=== PATIENT | female | born 1940 ===

== ENCOUNTER 2017-10-25 10:40 | Inpatient (IN) | payer MEDICARE, MEDICAID ==
[~2017-10-25] VITALS: Ht 160 cm; Wt 58.5 kg
--- NOTE | 2017-10-25 17:05 | NUR ---
Received this direct admission from [facility], 77 yo female, with the chief complaint of falling, diagnosis of left hip fracture s/p left hip IM [place] [facility]IF by Dr. Olsen. Transferred to bed comfortably. Routine admission care rendered. Awake, alert, oriented x 4, Northern Irish speaking able to speak simple [place]i. Left hip and lateral knee incision with mateo intact. Noted left hip skin tear. Photos taken.
[2017-10-25 17:15] VITALS: BP 134/61
[2017-10-25] MEDS ORDERED: Z GUARD REMEDY PASTE 57 GM TUBE TOP PRN (18:45)
--- NOTE | 2017-10-25 19:03 | NUR ---
Dinner served. Endorsed for further care
[2017-10-25] MEDS ORDERED: MAGN64TA13 PO (19:21)
[2017-10-25] MEDS ORDERED: MULT1TAB73 PO (19:21)
[2017-10-25] MEDS ORDERED: CYAN10009 PO (19:21)
[2017-10-25] MEDS ORDERED: OXYCODONE/APAP 5-325 MG TABLET PO PRN (19:30)
--- NOTE | 2017-10-25 19:30 | NUR ---
Received patient from day shift nurse. Patient in no acute distress at start of shift. A/Ox4, Citizen Of [place]an speaking, able to make needs known. Pertinent assessment completed. Patient denies pain & sob. Left hip incision is clean & dry with no s/s of infection or inflammation. Ceres are intact. Bed placed in low position & locked. Call light within reach. Will continue to monitor through shift.
[2017-10-25] MEDS: DOCUSATE SODIUM 100 MG CAPSULE PO SCH (20:47)
[2017-10-25 21:10] VITALS: BP 119/56
[2017-10-26 07:25] VITALS: BP 101/56
[2017-10-26] MEDS: MULTIVITAMINS,THERAPEUTIC TABLET PO SCH (09:28)
[2017-10-26] MEDS: CYANOCOBALAMIN 1,000 MCG TABLET PO SCH (09:28)
[2017-10-26] MEDS: MAGNESIUM CHLORIDE 64 MG TABLET.SA PO SCH (09:28)
[2017-10-26] MEDS: OXYCODONE/APAP 5-325 MG TABLET PO PRN (09:43)
[2017-10-26] MEDS: MAGNESIUM HYDROXIDE 30 ML LIQUID UDC PO PRN (15:39)
--- NOTE | 2017-10-26 19:30 | NUR ---
Patient lying comfortably in bed at start of shift. Family at the bedside. Pertinent assessment completed. Denies left hip pain at the moment. Left hip incision is clean, dry, intact. No s/s of infection noted. Dressing is intact. Patient had 1 large BM at start of shift. Bed in low position & locked. Call light within reach. Will continue to monitor through shift.
[2017-10-26] MEDS: BISACODYL 5 MG TABLET.DR PO SCH (21:00)
[2017-10-26] MEDS: DOCUSATE SODIUM 100 MG CAPSULE PO SCH (21:00)
--- NOTE | 2017-10-26 21:00 | NUR ---
Patient refused Colace & Dulcolax meds because she just had a large BM at start of shift. Explained risks & benefits of medications. Will continue to monitor patient
[2017-10-26 22:16] VITALS: BP 116/60
[2017-10-27] MEDS: OXYCODONE/APAP 5-325 MG TABLET PO PRN ×2 (06:07→23:07)
[2017-10-27 07:42] VITALS: BP 103/57
[2017-10-27] MEDS: MAGNESIUM CHLORIDE 64 MG TABLET.SA PO SCH (11:05)
[2017-10-27] MEDS: CYANOCOBALAMIN 1,000 MCG TABLET PO SCH (11:05)
[2017-10-27] MEDS: MULTIVITAMINS,THERAPEUTIC TABLET PO SCH (11:05)
[2017-10-27] MEDS ORDERED: IRON18TA PO (13:31)
--- NOTE | 2017-10-27 19:30 | NUR ---
Received patient from day shift nurse. Patient currently lying in bed at start of shift with no acute distress noted. Patient denies pain & SOB at the moment. Pertinent assessment completed. A/Ox4 Ukrainian/Liberian speaking & able to make needs known. Patient had a BM this AM. Refusing 2100 meds Dulcolax & Colace. Explained risks & benefits. patient continues to refuse meds and states that prune juice works well for her. Call light within reach of pt. Will continue to monitor through shift.
[2017-10-27] MEDS: DOCUSATE SODIUM 100 MG CAPSULE PO SCH (20:18)
[2017-10-27] MEDS: BISACODYL 5 MG TABLET.DR PO SCH (20:18)
[2017-10-27 20:48] VITALS: BP 120/71
[2017-10-28 08:00] VITALS: BP 118/64
[2017-10-28] MEDS: MAGNESIUM CHLORIDE 64 MG TABLET.SA PO SCH (09:00)
[2017-10-28] MEDS: MULTIVITAMINS,THERAPEUTIC TABLET PO SCH (09:00)
[2017-10-28] MEDS: CYANOCOBALAMIN 1,000 MCG TABLET PO SCH (09:00)
[2017-10-28 15:59] VITALS: BP 108/59
--- NOTE | 2017-10-28 18:30 | NUR ---
Patient alert, in no distress. Dressing on left hip/thigh clean/dry/intact. Assisted patient with toileting needs. Patient c/o of pain upon movement but refuses pain medication. Discussed risks/benefits of taking/not taking pain medication, patient/daughter verbalized understanding.
[2017-10-28 19:46] VITALS: BP 108/59
[2017-10-28] MEDS: DOCUSATE SODIUM 100 MG CAPSULE PO SCH (21:08)
[2017-10-28] MEDS: BISACODYL 5 MG TABLET.DR PO SCH (21:09)
--- NOTE | 2017-10-28 23:00 | NUR ---
Pt noted to have three opened blisters on the left hip around the surgical site. Changed dressing and used skin tape instead. Pictures taken and placed in chart. No s/s of infection noted. Daughter at bedside and aware of skin condition. Teachings provided regarding wound care. Will continue to monitor.
[2017-10-29 06:40] VITALS: BP 96/55
[2017-10-29 08:00] VITALS: BP 98/54
[2017-10-29] MEDS: MULTIVITAMINS,THERAPEUTIC TABLET PO SCH (09:47)
[2017-10-29] MEDS: MAGNESIUM CHLORIDE 64 MG TABLET.SA PO SCH (09:48)
[2017-10-29] MEDS: CYANOCOBALAMIN 1,000 MCG TABLET PO SCH (09:48)
[2017-10-29] MEDS: OXYCODONE/APAP 5-325 MG TABLET PO PRN (13:32)
[2017-10-29 15:59] VITALS: BP 97/55
--- NOTE | 2017-10-29 18:57 | NUR ---
Pt. is alert and verbally responsive. Continue on pain management with good effect. not in distress.change dressing done with small amount serous yellow brownish drainage, 1x BM noted. Call qureshi within reach. will continue monitor
--- NOTE | 2017-10-29 20:00 | NUR ---
Pt resting in bed. Family at bedside. No acute distress noted. No c/o pain or discomfort. Wound site healing well. No s/s of infection noted. Safety measures maintained. Call light and personal belongings within reach. Will continue to monitor.
[2017-10-29 20:30] VITALS: BP_SYST 105; BP_SYST 112; BP_DIAS 59; BP_DIAS 61
[2017-10-29] MEDS: DOCUSATE SODIUM 100 MG CAPSULE PO SCH (20:30)
[2017-10-29] MEDS: BISACODYL 5 MG TABLET.DR PO SCH (20:30)
[2017-10-30] MEDS: MAGNESIUM HYDROXIDE 30 ML LIQUID UDC PO PRN (00:11)
[2017-10-30 07:16] VITALS: BP 102/53
[2017-10-30 08:00] VITALS: BP 107/54
[2017-10-30] MEDS: MAGNESIUM CHLORIDE 64 MG TABLET.SA PO SCH (09:40)
[2017-10-30] MEDS: MULTIVITAMINS,THERAPEUTIC TABLET PO SCH (09:40)
[2017-10-30] MEDS: CYANOCOBALAMIN 1,000 MCG TABLET PO SCH (09:40)
[2017-10-30 16:09] VITALS: BP 118/60
--- NOTE | 2017-10-30 19:30 | NUR ---
Patient lying in bed comfortably at start of shift. Family at the bedside. Patient denies pain. Pertinent assessment completed. A/O x4, Korean/Divehi speaking & able to make all needs known. Left hip incision is clean & dry with no s/s of infection or inflammation. Dressing intact. Vital signs within range. Call light within reach. Will continue to monitor through shift.
[2017-10-30 20:16] VITALS: BP 121/64
[2017-10-30] MEDS: DOCUSATE SODIUM 100 MG CAPSULE PO SCH (20:31)
[2017-10-30] MEDS: BISACODYL 5 MG TABLET.DR PO SCH (20:31)
--- NOTE | 2017-10-30 20:32 | NUR ---
Patient refusing 2100 meds Colace & Dulcolax. Patient stating that she has no problems using the bathroom. Educated patient & explained risks & benefits. Will continue to monitor through shift.
[2017-10-31] MEDS: OXYCODONE/APAP 5-325 MG TABLET PO PRN ×2 (01:24→09:07)
[2017-10-31 04:00] VITALS: BP 106/56
[2017-10-31 08:19] VITALS: BP 105/59
[2017-10-31] MEDS: CYANOCOBALAMIN 1,000 MCG TABLET PO SCH (08:29)
[2017-10-31] MEDS: MULTIVITAMINS,THERAPEUTIC TABLET PO SCH (08:29)
[2017-10-31] MEDS: MAGNESIUM CHLORIDE 64 MG TABLET.SA PO SCH (08:29)
--- NOTE | 2017-10-31 09:30 | NUR ---
Pt.family at bedside,updated with pt.condition and plan of care.
[2017-10-31] MEDS ORDERED: ENOXAPARIN SODIUM 40 MG/0.4 ML DISP.SYRIN SQ SCH (11:45)
--- NOTE | 2017-10-31 14:15 | NUR ---
Pt.watching TV,denies any pain
[2017-10-31 15:04] LABS: BASOPHILS # (AUTO) 0.1 K/uL (0.0-8.0); BASOPHILS % (AUTO) 0.9 % (0.0-2.0); EOSINOPHILS # (AUTO) 0.3 K/uL (0.0-0.7); EOSINOPHILS % (AUTO) 3.2 % (0.0-7.0); HEMATOCRIT 30.8 % (31.2-41.9); HEMOGLOBIN 9.8 g/dL (10.9-14.3); LYMPHOCYTES # (AUTO) 1.3 K/uL (20.0-40.0); MEAN CORPUSCULAR HEMOGLOBIN 26.3 uug (24.7-32.8); MEAN CORPUSCULAR HGB CONC 32 g/dL (32.3-35.6); MEAN CORPUSCULAR VOLUME 82.6 fL (75.5-95.3); MONOCYTES # (AUTO) 0.9 K/uL (2.0-10.0); MONOCYTES % (AUTO) 9.9 % (0.0-11.0); NEUTROPHILS # (AUTO) 6.6 K/uL (1.8-8.9); PLATELET COUNT (AUTO) 470 K/uL (179-408); RED BLOOD CELL COUNT(AUTO) 3.73 MIL/uL (3.63-4.92); WHITE BLOOD COUNT (AUTO) 9.1 K/uL (3.8-11.8)
[2017-10-31 15:10] LABS: ALANINE AMINOTRANSFERASE 14 U/L (14-59); ALKALINE PHOSPHATASE 68 U/L (50-136); ASPARTATE AMINOTRANSFERASE 16 U/L (15-37); BILIRUBIN,TOTAL 0.5 mg/dL (0.2-1.0); CARBON DIOXIDE 30 mmol/L (21-32); CHLORIDE 102 mmol/L (98-107); CREATININE 0.9 mg/dL (0.6-1.3); GLUCOSE 105 mg/dL (74-106); MAGNESIUM 2.1 mg/dL (1.8-2.4); PHOSPHOROUS 4.3 mg/dL (2.5-4.9); POTASSIUM 4.6 mmol/L (3.5-5.1); TOTAL PROTEIN, SERUM 6.6 g/dL (6.4-8.2); UREA NITROGEN, BLOOD 15 mg/dL (7-18)
[2017-10-31 16:32] VITALS: BP 101/55
[2017-10-31] MEDS: MAGNESIUM HYDROXIDE 30 ML LIQUID UDC PO PRN (17:14)
--- NOTE | 2017-10-31 17:55 | NUR ---
Pt. eating dinner with family,no s/s of distress,denies any pain.
--- NOTE | 2017-10-31 19:30 | NUR ---
Received report from day shift RN. Patient stable at start of shift with no acute distress noted. Patient denies pain at the moment. Pertinent assessment completed. Vital signs WNL. Left hip incision is clean & dry with no s/s of infection or inflammation. Dressing is intact. Bed in low position x2 side rails up. Call light within reach. Will continue to monitor through shift.
[2017-10-31 19:47] VITALS: BP 107/59
[2017-10-31] MEDS: BISACODYL 5 MG TABLET.DR PO SCH (20:18)
[2017-10-31] MEDS: DOCUSATE SODIUM 100 MG CAPSULE PO SCH (20:18)
[2017-10-31] MEDS: ENOXAPARIN SODIUM 40 MG/0.4 ML DISP.SYRIN SQ SCH (20:20)
[2017-11-01 05:17] VITALS: BP 109/65
[2017-11-01 07:05] VITALS: BP 95/54
[2017-11-01] MEDS: MAGNESIUM CHLORIDE 64 MG TABLET.SA PO SCH ×2 (08:45→08:46)
[2017-11-01] MEDS: MULTIVITAMINS,THERAPEUTIC TABLET PO SCH (08:45)
[2017-11-01] MEDS: CYANOCOBALAMIN 1,000 MCG TABLET PO SCH (08:45)
[2017-11-01] MEDS: OXYCODONE/APAP 5-325 MG TABLET PO PRN ×2 (09:42→14:32)
[2017-11-01 15:00] VITALS: BP 106/57
--- NOTE | 2017-11-01 18:24 | NUR ---
Patient resting in bed, in no distress. Pain management as ordered. Dressing on left hip and left lateral knee clean/dry/intact. Incision with mateo on left hip and left lateral knee intact, no bleeding/discharge/redness noted. VS stable, pt is afebrile. Assisted with toileting needs. Safety measures in place. Daughter at bedside
--- NOTE | 2017-11-01 19:11 | NUR ---
RECEIVED REPORT FROM DAY SHIFT NURSE, RECEIVED Pt IN BED WITH DAUGHTER AT BEDSIDE, AWAKE, A/O X 4, DENIES PAIN OR DISCOMFORT AT THIS TIME. SURGICAL SITE INTACT, CLEAN, DRY WITH NO BLEEDING, REDNESS OR SIGNS OF INFECTION NOTED. IN STABLE CONDITION, REQUIRES ASSISTANCE TO USE THE BATHROOM. EMPHASIZED SAFETY, BED AT LOWEST POSITION WITH WHEELS LOCKED AND SIDE RAILS UP X 2.
--- NOTE | 2017-11-01 19:20 | NUR ---
Pt AND DAUGHTER REQUESTED TO HOLD COLACE AND DULCOLAX MEDS TONIGHT. COMPLAINED OF GOING TO BATHROOM TOO OFTEN AND NOT ALLOWING THEM TO SLEEP. WILL HOLD MED PER Pt AND FAMILY REQUEST.
[2017-11-01 20:28] VITALS: BP 119/55
[2017-11-01] MEDS: BISACODYL 5 MG TABLET.DR PO SCH (21:00)
[2017-11-01] MEDS: DOCUSATE SODIUM 100 MG CAPSULE PO SCH (21:00)
[2017-11-01] MEDS ORDERED: ENOXAPARIN SODIUM 40 MG/0.4 ML DISP.SYRIN SQ ONE (22:33)
[2017-11-01] MEDS: ENOXAPARIN SODIUM 40 MG/0.4 ML DISP.SYRIN SQ SCH (22:39)
[2017-11-02 05:20] VITALS: BP 102/54
--- NOTE | 2017-11-02 06:56 | NUR ---
Pt SLEPT INTERMITTENTLY THROUGHOUT THE NIGHT, CALLED FOR ASSISTANCE 3X TO URINATE. DENIES PAIN OR DISCOMFORT AT THIS TIME. CONTINUES TO BE COMPLIANT WITH MEDS AND CARE STAFF. NO AGGRESSIVE BX NOTED.
[2017-11-02 08:33] VITALS: BP 94/52
[2017-11-02] MEDS: OXYCODONE/APAP 5-325 MG TABLET PO PRN (09:06)
[2017-11-02] MEDS: MAGNESIUM CHLORIDE 64 MG TABLET.SA PO SCH (09:06)
[2017-11-02] MEDS: MULTIVITAMINS,THERAPEUTIC TABLET PO SCH (09:08)
[2017-11-02] MEDS: CYANOCOBALAMIN 1,000 MCG TABLET PO SCH (09:09)
[2017-11-02] MEDS ORDERED: IRON 25 MG PO SCH (10:45)
[2017-11-02 16:45] VITALS: BP 102/61
[2017-11-02] MEDS: [UNRECOGNIZED DRUG - OTHER] PO SCH (18:24)
--- NOTE | 2017-11-02 19:30 | NUR ---
Received patient in bed. Alert and verbally responsive. Able to make needs known. Denies any pain and discomfort. No acute distress. No SOB. Left hip dressing is clean and intact. Kept clean and dry. All needs attended to promptly. Call light within reach. Will continue to monitor.
[2017-11-02 20:14] VITALS: BP 102/55
[2017-11-02] MEDS: DOCUSATE SODIUM 100 MG CAPSULE PO SCH (20:31)
[2017-11-02] MEDS: BISACODYL 5 MG TABLET.DR PO SCH (20:31)
[2017-11-02] MEDS: ENOXAPARIN SODIUM 40 MG/0.4 ML DISP.SYRIN SQ SCH (20:37)
[2017-11-03 05:30] VITALS: BP 105/52
--- NOTE | 2017-11-03 06:29 | NUR ---
Patient slept comfortably throughout the night. No c/o pain and discomfort. No acute distress. No SOB. Assisted to the bathroom and with bedpan as needed. Pericare provided. Kept clean and dry. All needs attended to promptly. Call light within reach. Will continue to monitor.
[2017-11-03 08:00] VITALS: BP 114/61
[2017-11-03] MEDS: [UNRECOGNIZED DRUG - OTHER] PO SCH (08:22)
[2017-11-03] MEDS: MULTIVITAMINS,THERAPEUTIC TABLET PO SCH (08:23)
[2017-11-03] MEDS: CYANOCOBALAMIN 1,000 MCG TABLET PO SCH (08:23)
[2017-11-03] MEDS: MAGNESIUM CHLORIDE 64 MG TABLET.SA PO SCH (08:23)
[2017-11-03] MEDS: OXYCODONE/APAP 5-325 MG TABLET PO PRN (13:38)
[2017-11-03 16:13] VITALS: BP 92/61
--- NOTE | 2017-11-03 19:55 | NUR ---
Pt resting bed. AAO x4, Tajik speaking, able to make needs known. Daughter at bedside. No c/o pain or discomfort. Safety measures maintained. Call light and personal belongings within reach. Will continue to monitor.
[2017-11-03] MEDS: ENOXAPARIN SODIUM 40 MG/0.4 ML DISP.SYRIN SQ SCH (20:06)
[2017-11-03 20:07] VITALS: BP 114/56
[2017-11-03] MEDS: DOCUSATE SODIUM 100 MG CAPSULE PO SCH (20:07)
[2017-11-03] MEDS: BISACODYL 5 MG TABLET.DR PO SCH (20:07)
[2017-11-04 05:26] VITALS: BP 115/55
[2017-11-04 07:59] VITALS: BP 100/53
--- NOTE | 2017-11-04 08:14 | NUR ---
Patient noted sitting up in bed, assisted to restroom at this time, complains of pain in left hip, unable to scale due to language barrier, no sins of distress noted, call light in reach, bed locked and in lowest position
[2017-11-04] MEDS: MAGNESIUM CHLORIDE 64 MG TABLET.SA PO SCH (08:30)
[2017-11-04] MEDS: CYANOCOBALAMIN 1,000 MCG TABLET PO SCH (08:30)
[2017-11-04] MEDS: MULTIVITAMINS,THERAPEUTIC TABLET PO SCH (08:30)
[2017-11-04] MEDS: OXYCODONE/APAP 5-325 MG TABLET PO PRN (08:32)
[2017-11-04] MEDS: [UNRECOGNIZED DRUG - OTHER] PO SCH (09:02)
--- NOTE | 2017-11-04 13:28 | NUR ---
INTERDISCIPLINARY TEAM CONFERENCE
[2017-11-04] MEDS ORDERED: BISACODYL 5 MG TABLET.DR PO PRN (15:00)
[2017-11-04 16:50] VITALS: BP 100/72
--- NOTE | 2017-11-04 19:55 | NUR ---
Pt resting comfortably in bed. AAO X4, Rwandan speaking, and able to make needs known. Daughter at bedside. No c/o pain or discomfort. Safety measures maintained. Call light and personal belongings within reach. Will continue to monitor.
[2017-11-04 20:03] VITALS: BP 121/71
[2017-11-04] MEDS: DOCUSATE SODIUM 100 MG CAPSULE PO SCH (21:08)
[2017-11-04] MEDS: ENOXAPARIN SODIUM 40 MG/0.4 ML DISP.SYRIN SQ SCH (21:09)
[2017-11-05 05:09] VITALS: BP 118/68
[2017-11-05] MEDS: MAGNESIUM CHLORIDE 64 MG TABLET.SA PO SCH (09:35)
[2017-11-05] MEDS: MULTIVITAMINS,THERAPEUTIC TABLET PO SCH (09:35)
[2017-11-05] MEDS: CYANOCOBALAMIN 1,000 MCG TABLET PO SCH (09:35)
[2017-11-05] MEDS: [UNRECOGNIZED DRUG - OTHER] PO SCH (09:36)
[2017-11-05] MEDS: OXYCODONE/APAP 5-325 MG TABLET PO PRN (14:57)
[2017-11-05 20:00] VITALS: BP 107/56
[2017-11-05] MEDS: DOCUSATE SODIUM 100 MG CAPSULE PO SCH (21:10)
[2017-11-05] MEDS: ENOXAPARIN SODIUM 40 MG/0.4 ML DISP.SYRIN SQ SCH (21:16)
[2017-11-06 05:00] VITALS: BP 117/63
[2017-11-06 08:00] VITALS: BP 102/57
[2017-11-06] MEDS: CYANOCOBALAMIN 1,000 MCG TABLET PO SCH (10:01)
[2017-11-06] MEDS: MULTIVITAMINS,THERAPEUTIC TABLET PO SCH (10:01)
[2017-11-06] MEDS: MAGNESIUM CHLORIDE 64 MG TABLET.SA PO SCH (10:03)
[2017-11-06] MEDS: [UNRECOGNIZED DRUG - OTHER] PO SCH (10:03)
[2017-11-06] MEDS: OXYCODONE/APAP 5-325 MG TABLET PO PRN (10:07)
[2017-11-06 16:01] VITALS: BP 124/62
[2017-11-06 20:14] VITALS: BP 120/59
[2017-11-06] MEDS: DOCUSATE SODIUM 100 MG CAPSULE PO SCH (20:30)
[2017-11-06] MEDS: ENOXAPARIN SODIUM 40 MG/0.4 ML DISP.SYRIN SQ SCH (20:34)
--- NOTE | 2017-11-06 21:36 | NUR ---
received patient in fair condition. aaox3 needs attended. oob to the BR with walker under supervision. voiding well. patient was constipated. dulcolax tabs given as ordered. Small BM noted . will monitor patient. fall precautions maintained. siderails up for safety. left hip dressing clean dry and intact. denies any pain at this time. kept comfortable.
[2017-11-07] MEDS: OXYCODONE/APAP 5-325 MG TABLET PO PRN ×3 (00:09→21:07)
--- NOTE | 2017-11-07 05:11 | NUR ---
patient has a large BM noted this shift. patient felt much better. no acute distress noted, will monitor patient. kept comfortable.
[2017-11-07] MEDS: MULTIVITAMINS,THERAPEUTIC TABLET PO SCH (09:06)
[2017-11-07] MEDS: [UNRECOGNIZED DRUG - OTHER] PO SCH (09:06)
[2017-11-07] MEDS: MAGNESIUM CHLORIDE 64 MG TABLET.SA PO SCH (09:06)
[2017-11-07] MEDS: CYANOCOBALAMIN 1,000 MCG TABLET PO SCH (09:06)
--- NOTE | 2017-11-07 14:04 | NUR ---
F/U APPT SCHEDULED FOR 11/08/17 WITH MD CARDONA [id number]. BROOK [facility]NAUP SCHEDULED FOR 729 TRIP # [id number] Addendum: 11/07/17 at 1420 by Lawanda Tyson RN DAUGHTERS AT BEDSIDE INFORMATION GIVEN TO THEM REGARDING THEY APPT VERBALIZE UNDERSTANDING. CD OF HIP XRAY IN CHART TO BE TAKEN TO APPT
--- NOTE | 2017-11-07 19:30 | NUR ---
Received patient in bed. Alert and verbally responsive. Able to make needs known. Family at bedside. No c/o pain and discomfort. No acute distress. No SOB. Kept clean and dry. All needs attended to promptly. Call light within reach. Will continue to monitor.
[2017-11-07 19:55] VITALS: BP 124/64
[2017-11-07] MEDS: DOCUSATE SODIUM 100 MG CAPSULE PO SCH (21:00)
[2017-11-07] MEDS: ENOXAPARIN SODIUM 40 MG/0.4 ML DISP.SYRIN SQ SCH (21:04)
[2017-11-08 06:14] VITALS: BP 107/58
--- NOTE | 2017-11-08 06:25 | NUR ---
Patient slept comfortably throughout the night. No c/o pain and discomfort. No acute distress. No SOB. Kept clean and dry. Dressing on left hip intact. Assisted to the bathroom with walker as needed. All needs attended to promptly. Call light within reach. Will continue to monitor.
--- NOTE | 2017-11-08 07:15 | NUR ---
Received patient awake, verbally responsive, coherent, not in any form of acute distress. No complain of pain at this time. Call light placed within reach. Assisted to her needs.
[2017-11-08 08:00] VITALS: BP 104/61
--- NOTE | 2017-11-08 08:10 | NUR ---
Patient picked up by [facility] transportation via [facility] for appointment with Dr. Olsen. She denies any pain or discomfort at this time.
--- NOTE | 2017-11-08 09:40 | NUR ---
Patient back from 's appointment with no new order. Patient remains alert, no complain of any pain at this time. Assisted patient to the bathroom then to bed. Call light placed within reach.
--- NOTE | 2017-11-08 09:41 | NUR ---
[place] [facility] on surgical sites removed from Dr. Grande's office with noted dry surgical wound with intact steri-strips.
[2017-11-08] MEDS: [UNRECOGNIZED DRUG - OTHER] PO SCH (10:21)
[2017-11-08] MEDS: MAGNESIUM CHLORIDE 64 MG TABLET.SA PO SCH (10:21)
[2017-11-08] MEDS: CYANOCOBALAMIN 1,000 MCG TABLET PO SCH (10:22)
[2017-11-08] MEDS: MULTIVITAMINS,THERAPEUTIC TABLET PO SCH (10:22)
[2017-11-08] MEDS: OXYCODONE/APAP 5-325 MG TABLET PO PRN ×2 (14:51→21:13)
[2017-11-08 16:00] VITALS: BP 128/60
[2017-11-08] MEDS ORDERED: METHYL SALICYLATE/MENTHOL CREAM 28 GM TUBE TOP PRN (19:00)
--- NOTE | 2017-11-08 19:02 | NUR ---
Patient seen by Dr. Murray, informed MD regarding patient's complain of pain on the right arm. MD ordered methyl salycilate/menthol cream QID PRN. Order carried out. Patient aware.
[2017-11-08 19:53] VITALS: BP 129/71
--- NOTE | 2017-11-08 20:00 | NUR ---
Received pt alert, awake and oriented x3 with no signs/symptoms of distress noted. Complained of right arm pain, bengay cream applied on site and percocet PRN was given as ordered. No SOB. Vital signs stable. Kept clean, dry and comfortable. Safety and fall precautions observed and maintained. Call light and personal belongings within reach. All needs attended.
[2017-11-08] MEDS: DOCUSATE SODIUM 100 MG CAPSULE PO SCH (21:00)
[2017-11-08] MEDS: ENOXAPARIN SODIUM 40 MG/0.4 ML DISP.SYRIN SQ SCH (21:08)
[2017-11-09 06:10] VITALS: BP 120/68
[2017-11-09 07:13] VITALS: BP 103/52
[2017-11-09] MEDS: MULTIVITAMINS,THERAPEUTIC TABLET PO SCH (08:15)
[2017-11-09] MEDS: CYANOCOBALAMIN 1,000 MCG TABLET PO SCH (08:15)
[2017-11-09] MEDS: MAGNESIUM CHLORIDE 64 MG TABLET.SA PO SCH (08:15)
[2017-11-09] MEDS: OXYCODONE/APAP 5-325 MG TABLET PO PRN (08:16)
[2017-11-09] MEDS: [UNRECOGNIZED DRUG - OTHER] PO SCH (08:16)
--- NOTE | 2017-11-09 09:39 | NUR ---
Took all AM medications, patient complains of bilateral arm pain, 1 tab of Percocet given and bengay applied to bilateral arms, call light in reach, bed locked and in lowest position, all needs met at this time
[2017-11-09 16:12] VITALS: BP 107/57
[2017-11-09 20:44] VITALS: BP 124/59
[2017-11-09] MEDS: DOCUSATE SODIUM 100 MG CAPSULE PO SCH (20:46)
[2017-11-09] MEDS: ENOXAPARIN SODIUM 40 MG/0.4 ML DISP.SYRIN SQ SCH (20:47)
--- NOTE | 2017-11-10 01:26 | NUR ---
resting in bed. aaox3 ambulates to the BR with walker. Voiding freely. BM noted this shift. No acute distress noted. kept comfortable. tolerated po meds well. denies any pain nor any discomfort. fall precautions noted, needs attended. will monitor patient.
--- NOTE | 2017-11-10 05:37 | NUR ---
quiet night. slept well. no acute distress noted. voiding freely. needs attended. repositioned for comfort. compliant with meds.no complained presented so far.
[2017-11-10 05:57] VITALS: BP 138/69
[2017-11-10 08:00] VITALS: BP 105/57
--- NOTE | 2017-11-10 08:20 | NUR ---
Patient noted sitting on commode, no complaints of pain at this time, no signs of distress, call light in reach, walker and [employer] on stand by assist, all needs met at this time
[2017-11-10] MEDS: [UNRECOGNIZED DRUG - OTHER] PO SCH (08:50)
[2017-11-10] MEDS: CYANOCOBALAMIN 1,000 MCG TABLET PO SCH (08:51)
[2017-11-10] MEDS: MULTIVITAMINS,THERAPEUTIC TABLET PO SCH (08:51)
[2017-11-10] MEDS: MAGNESIUM CHLORIDE 64 MG TABLET.SA PO SCH (08:51)
--- NOTE | 2017-11-10 12:38 | NUR ---
115/55, 81 pulse, 97% on room air, 17 respirations, Patient left facility via gurney and ambulance service, DME's taken (walker/ commode), inventory accounted for and returned to patient, medications retrieved and returned to patient, exit care done, discharge instructions provided, pain medications called in to [facility] pharmacy on [address] via MD Murray. MD Murray and MD Wright notified of patient's discharge.
== END 2017-11-10 12:35 | disposition home health service (06) | DRG 561 ==
PROVIDERS: ADMIT Physical Medicine & Rehabilitation Pain Medicine; ATTEND Physical Medicine & Rehabilitation Pain Medicine
DX: S72.002D Fracture of unspecified part of neck of left femur, subsequent encounter for closed fracture with routine healing (principal); J44.9 Chronic obstructive pulmonary disease, unspecified; D64.9 Anemia, unspecified; E03.9 Hypothyroidism, unspecified; W19.XXXD Unspecified fall, subsequent encounter; M81.0 Age-related osteoporosis without current pathological fracture; K44.9 Diaphragmatic hernia without obstruction or gangrene; K59.00 Constipation, unspecified; R26.9 Unspecified abnormalities of gait and mobility; R91.1 Solitary pulmonary nodule
CPT/HCPCS: 36415; 73502; 83735; 84100; 84443; 85025; 92526; 92610; 97110; 97112; 97116; 97530; 97535; A4663; J1650